=== PATIENT | male | born 1960 | race Caucasian/White ===

== ENCOUNTER → 2019-01-26 | Outpatient (CLI) | payer OTHER ==
--- NOTE | 2019-01-26 16:00 | DIREP ---
PROCEDURE:MR SHOULDER WITHOUT CONTRAST [Left] TECHNIQUE:Multi-planar MR images of the left shoulder were obtained without contrast. COMPARISON:None. INDICATIONS:RC TEAR LT SHOULDER FINDINGS: ROTATOR CUFF:Tendinosis of the anterior supraspinatus tendon without measurable tear. Infraspinatus tendon intact. Deep fiber partial thickness subscapularis tendon tear and tendinosis, tear measures 1.4 x 1.3 cm transverse/craniocaudal dimension spanning less than 50% tendon depth. Teres minor tendon demonstrates normal signal and morphology BICEPS TENDON:Biceps tendon shows normal signal, morphology and course. MUSCLES:Muscles proportionate without atrophy. LIGAMENTS:Posterior band of inferior glenohumeral ligament thickened and edematous at the glenoid attachment. Superior and middle glenohumeral ligaments not well assessed without arthrographic contrast. LABRUM:Tear is present involving the posteroinferior labrum with small paralabral cysts (7 to 9 o'clock position), aggregate of cysts measures 1.6 x 0.5 cm (image 15 sagittal T2 fat sat). Labral tear is located in the region of thickened inferior glenohumeral ligament. The superior and anterior labrum demonstrate normal signal and morphology. AC JOINT:Moderate AC joint arthrosis with capsular thickening and mild distal clavicular undersurface spurring effacing the subacromial fat. GLENOHUMERAL JT:Glenohumeral articular cartilage appears maintained. Humeral head centered within the glenoid fossa. Small joint effusion and synovitis. ACROMION:Type 1 acromion, no os acromiale. BONES:Marrow signal is age appropriate. OTHER:Negative. CONCLUSION: 1. Posterior capsular/labroligamentous injury with small paralabral cysts. 2. Partial-thickness subscapularis tendon tear. 3. Supraspinatus tendinosis. Dictated by: Car Walker M.D. on 01/26/2019 at 03:53 PM
== END | disposition home or self-care (01) ==
LOC: RAD 01-24 10:00 → EDSTATUS 01-24 10:00 → RAD 01-24 10:28
PROVIDERS: ATTEND Orthopaedic Surgery
DX: S46.812A Strain of other muscles, fascia and tendons at shoulder and upper arm level, left arm, initial encounter (principal); S43.432A Superior glenoid labrum lesion of left shoulder, initial encounter; M75.82 Other shoulder lesions, left shoulder; X58.XXXA Exposure to other specified factors, initial encounter; Y93.89 Activity, other specified; Y92.89 Other specified places as the place of occurrence of the external cause; Y99.8 Other external cause status
CPT/HCPCS: 73221